=== PATIENT | male | born 1980 | race Caucasian/White ===

== ENCOUNTER 2020-10-26 00:33 | Emergency (ER) | payer OTHER ==
[~2020-10-26] VITALS: Ht 172.7 cm; Wt 77.1 kg
--- NOTE | 2020-10-26 00:45 | NUR ---
PT RADHA TODD FROM [facility] C/O MEDICAL CLEARANCE, NO SI/PLANS AT THIS TIME, PT WANTED TO BE INITIALLY BROUGHT TO [facility]. A/O X2-3, NOTED WITH SLURRED SPEECH, UNABLE TO GIVE US PROPER HX. NO SOB OR LABORED BREATHING.
--- NOTE | 2020-10-26 00:55 | NUR ---
Asa MOLINA AT BEDSIDE, MSE IN PROGRESS.
[2020-10-26 01:24] LABS: ALANINE AMINOTRANSFERASE 101 U/L (16-63); ALKALINE PHOSPHATASE 117 U/L (50-136); ASPARTATE AMINOTRANSFERASE 102 U/L (15-37); BILIRUBIN,DIRECT 0.1 mg/dL (0.0-0.2); BILIRUBIN,TOTAL 0.3 mg/dL (0.2-1.0); CARBON DIOXIDE 28 mmol/L (21-32); CHLORIDE 106 mmol/L (98-107); CREATININE 0.8 mg/dL (0.6-1.3); GLUCOSE 107 mg/dL (74-106); POTASSIUM 3.4 mmol/L (3.5-5.1); UREA NITROGEN, BLOOD 9 mg/dL (7-18)
[2020-10-26 01:25] LABS: ACETAMINOPHEN < 2.0 ug/mL (10-30)
[2020-10-26 01:26] LABS: ETHANOL 446 MG/DL (0-0)
[2020-10-26 01:30] LABS: HEMATOCRIT 43.4 % (36.7-47.1); PLATELET COUNT (AUTO) 95 K/uL (152-348)
[2020-10-26] MEDS ORDERED: POTASSIUM CHLORIDE 20 MEQ TAB.PRT.SR PO ONE (01:45)
--- NOTE | 2020-10-26 01:55 | NUR ---
Leonardo yuen in ED - 10/26/[address] MOLINA AT [facility], MSE IN PROGRESS.
[2020-10-26] MEDS ORDERED: POTASSIUM CHLORIDE 20 MEQ TAB.PRT.SR ONE (02:27)
--- NOTE | 2020-10-26 02:35 | NUR ---
Patient is resting comfortably in bed with eyes closed. VSS.
--- NOTE | 2020-10-26 05:40 | NUR ---
Pt resting comfortably, breathing even and unlabored.
--- NOTE | 2020-10-26 06:15 | NUR ---
ASSISTED PT TO USE URINAL.
[2020-10-26 06:41] LABS: *BILIRUBIN,URIN NEGATIVE (NEGATIVE); *CLARITY,URINE CLEAR (CLEAR); *COLOR,URINE YELLOW (YELLOW); *KETONES,URINE NEGATIVE (NEGATIVE); *UROBILINOGEN,URINE 0.2 E.U./dl (NORMAL); LEUKOCYTE ESTERASE ,URINE NEGATIVE (NEGATIVE); NITRITE, URINE NEGATIVE (NEGATIVE); PH,URINE 5.5 (5.0-8.0); UGLUCOSE NEGATIVE (NEGATIVE)
[2020-10-26] MEDS ORDERED: AMOX-430 PO (06:43)
[2020-10-26 06:44] LABS: *BLOOD, URINE TRACE (NEGATIVE)
[2020-10-26 06:47] LABS: *AMPHETAMINE, URINE POSITIVE (NEGATIVE); *CANNABINOID, URINE POSITIVE (NEGATIVE); *COCCAINE, URINE NEGATIVE (NEGATIVE); *OPIATE, URINE NEGATIVE (NEGATIVE); *PHENCYCLIDINE SCREEN,URINE NEGATIVE (NEGATIVE)
--- NOTE | 2020-10-26 07:10 | NUR ---
Patient is resting comfortably in bed with eyes closed. VSS. Breathing even and unlabored.
[2020-10-26] MEDS ORDERED: KETOROLAC TROMETHAMINE 15 MG INJ IM ONE (08:00)
--- NOTE | 2020-10-26 08:00 | NUR ---
gave pt large water. Pt still endorses SI (stabbing self). aware.
[2020-10-26 08:39] LABS: BACTERIA,URINE FEW /HPF (NONE SEEN); SQUAMOUS EPITHELIAL CELL,UR FEW /HPF (NONE SEEN); WBC,URINE NONE SEEN /HPF (0-3)
[2020-10-26 08:40] LABS: URINE AMORPHOUS URATE MANY /HPF
[2020-10-26] MEDS ORDERED: CHLORDIAZEPOXIDE HCL 25 MG CAPSULE PO ONE (08:45)
[2020-10-26] MEDS ORDERED: CHLORDIAZEPOXIDE HCL 5 MG CAPSULE ONE (09:02)
--- NOTE | 2020-10-26 11:18 | NUR ---
Pt sleeping in bed, nodistress noted.
--- NOTE | 2020-10-26 11:35 | NUR ---
Pt now denies SI and wants to be d/c, MD aware.
--- NOTE | 2020-10-26 11:58 | NUR ---
Patient discharged to home in stable condition. Written and verbal after care instructions given. Patient verbalizes understanding of instructions. Pt was given extensive verbal ACI by Dr.Cousins bunch to discharge. Pt stated he will follow up at [facility]. Pt was also given other referrals for follow up including [facility]. Stressed follow up or return to ER for worsening s/s.
== END 2020-10-26 12:00 | disposition home or self-care (01) ==
LOC: ER 00:37
DX: F10.129 Alcohol abuse with intoxication, unspecified (principal); Y90.8 Blood alcohol level of 240 mg/100 ml or more; F19.10 Other psychoactive substance abuse, uncomplicated; R45.851 Suicidal ideations; Z20.822 Contact with and (suspected) exposure to COVID-19; Z59.0 Homelessness; F17.210 Nicotine dependence, cigarettes, uncomplicated
CPT/HCPCS: 36415; 85025; A4663; G0480; J8499